=== PATIENT | female | born 1995 | race African-American/Black ===

== ENCOUNTER 2017-02-15 08:40 | Inpatient (IN) | payer MEDICAID ==
[2017-02-15] VITALS (12 sets, daily range): BP systolic 104–119; BP diastolic 64–79; PULSE 63–81; RESP 14–20; TEMP 97.5–98.6; O2SAT 100
[~2017-02-15 08:40] MED LIST: FERRTAB6 PO; PREN1CHW7 PO
[2017-02-15] MEDS ORDERED: LACTATED RINGER'S 1000 ML INJ 1,000 ML IV ONE (09:10)
[2017-02-15 09:20] LABS: AUTOMATED NEUTROPHIL # 5.1 TH/MM3 (1.8-7.7); BASOPHIL % 0.5 % (0.0-2.0); EOSINOPHIL # 0.1 TH/MM3 (0-0.4); EOSINOPHIL % 1.5 % (0.0-4.0); HEMATOCRIT 28.9 % (35.0-46.0); HEMO FLAGS DIFF FINAL; LYMPH % 20.6 % (9.0-44.0); LYMPHOCYTE # 1.6 TH/MM3 (1.0-4.8); MEAN CELL VOLUME 75.3 FL (80.0-100.0); MEAN CORPUSCULAR HEMOGLOBIN 24.3 PG (27.0-34.0); MEAN CORPUSCULAR HGB CONC 32.3 % (32.0-36.0); MONO % 9.5 % (0.0-8.0); NEUT % 67.9 % (16.0-70.0); PLATELET COUNT 244 TH/MM3 (150-450); RED BLOOD COUNT 3.84 MIL/MM3 (4.00-5.30); WHITE BLOOD COUNT 7.5 TH/MM3 (4.0-11.0)
[2017-02-15 09:26] LABS: BACTERIA, URINE RARE /hpf; BLOOD, URINE NEG (NEG); COMMENT (UR) CULT NOT INDICATED; CULTURE IF INDICATED CULT NOT INDICATED; GLUCOSE,URINE NEG (NEG); KETONE, URINE NEG (NEG); MUCUS URINE FEW /lpf (OCC); NITRITE,URINE NEG (NEG); PH, URINE 7.5 (5.0-8.5); SQUAMOUS EPITHELIAL CELL URINE 2 /hpf (0-5); URINE COLOR YELLOW (YELLW/STRAW)
[2017-02-15] MEDS ORDERED: OXYTOCIN 10 UNIT/ML AMP ONE (09:39)
[2017-02-15] MEDS ORDERED: LACTATED RINGER'S 1000 ML INJ 1,000 ML IV SCH ×2 (09:40→16:33)
--- NOTE | 2017-02-15 10:04 | HHI.HP ---
History & Physical H&P Patient Name: Sosa Alves Unit Number: [id number] Date of : 1995 Patient Status: Registered Clinic Attending Doctor: Bolivar Mahajan II, MD HPI HPI Chief Complaint Previous for repeat Date Seen: Feb 03, 2017 Travel History International Travel<30 Days: No Contact w/Intl Traveler<30Days: No Known Affected Area: No History of Present Illness HPI Patient is a 22-year-old black female at 39-1/2 weeks presents for C- section . She had a previous done in [place] for failure to progress , she's had no problems this began her care this approximately 20 weeks and has had ultrasound confirmation of gestational age with a due date of 02/20/17. She was placed problems heart rate tracing is reactive she's not isabel Para: 1 : 2 History (Limited) History Past Medical History Narrative Medical Anemia and is taking by mouth iron Obstetric History Obstetric History 1 for failure to progress and [place] Past Surgical History Narrative Surgical 1 Social History Alcohol Use: No Tobacco Use: No Substance Abuse: No Allergies-Medications Allergies-Medications (Allergen,Severity, Reaction): Coded Allergies: No Known Allergies (Unverified , 01/26/17) Home Meds No Active Prescriptions or Reported Meds ROS Review of Systems General / Constitutional: No: Fever, Weight Gain, Chills, Other Eyes: No: Diploplia, Blurred Vision, Visual changes, Pain, Photophobia HENT: No: Headaches, Vertigo, Lightheadedness Cardiovascular: No: Irregular Rhythm, Chest Pain or Discomfort, Palpitations, Tachycardia, Syncope, Varicosities, Edema, Cyanosis Respiratory: No: Cough, Short of Breath, Other Gastrointestinal: No: Nausea, Vomiting, Diarrhea Genitourinary: No: Decreased Urinary Output, Oliguria Musculoskeletal: No: Limited ROM, Weakness, Cramping, Edema, Pain Skin: No Rash, No Itching, No Dryness, No Lumps, No Change in Pigmentation, No Change in Nails, No Alopecia, No Lesions Neurologic: No: Weakness, Dizziness, Syncope, Focal Abnormalities, Coordination Problem, Headache, Slurred Speech, Seizures Psychiatric: No: Depression, Suicidal Ideations, Homicidal Ideation Endocrine: No: Heat Intolerance, Cold Intolerance, Polydipsia, Polyuria, Other Physical Exam Physical Exam Narrative GENERAL: Well-nourished, well-developed patient. SKIN: Warm and dry. HEAD: Normocephalic and atraumatic. EYES: No scleral icterus. No injection or drainage. ENT: No nasal drainage noted. Mucous membranes pink. Airway patent. NECK: Supple, trachea midline. No JVD. CARDIOVASCULAR: Regular rate and rhythm without murmurs, gallops, or rubs. RESPIRATORY: Breath sounds equal bilaterally. No accessory muscle use. BREASTS: Bilateral exam showed no masses , no retractions, no nipple discharge. ABDOMEN/GI: Abdomen soft, non-tender, bowel sounds present, no rebound, no guarding Gravid to [38-] weeks size Fundal Height: [-38] GENITOURINARY: External Genitalia: intact and normal in appearance BUS glands: [-] Cervix: [-0] Dilatation: [0-] Effacement: [Thick-] Station: [-3] Presentation: [-vtx] Membranes: [intact ] Uterine Contractions: [0-] FHT's: Category: [1-] Baseline: [133-] Reactive: [yes-] Variability: [mod-] Decels: [0-] EXTREMITIES: No cyanosis or edema. BACK: Nontender without obvious deformity. No CVA tenderness. NEUROLOGICAL: Awake and alert. Motor and sensory grossly within normal limits. Five out of 5 muscle strength in all muscle groups. Normal speech. Data Data [facility] Interpretation(s) This patient is a 22-year-old black female at 37 weeks' now presented for . She's previous done in [place] for failure to progress. She has no complaints or problems at this time baby is reactive and no contractions. [facility] Plan Plan to schedule section repeat on 02/15/17 at 10:30 AM Diagnosis: previous at term Disposition: ADMIT Condition: Stable Scripts No Active Prescriptions or Reported Meds Bolivar Mahajan II, MD Feb 03, 2017 15:03 Bolivar Mahajan II, MD Feb 15, 2017 10:04
[2017-02-15] MEDS ORDERED: ceFAZolin 2 GM PREMIX 50 ML IV SCH (10:15)
[2017-02-15] MEDS ORDERED: CITRIC ACID-SODIUM CITRATE LIQ 30 ML UDC PO SCH (10:45)
[2017-02-15] MEDS ORDERED: MORPHINE SULFATE PF 5 MG/10 ML VIAL ONE (11:36)
[2017-02-15] MEDS ORDERED: SODIUM CHLORIDE 0.9% FLUSH 10 ML FLUSH IV FLUSH PRN (11:45)
[2017-02-15] MEDS ORDERED: KETOROLAC TROMETHAMINE 60 MG/2 ML (IM) VIAL IM PRN (11:45)
[2017-02-15] MEDS ORDERED: OXYTOCIN 30 UNITS-500ML PREMIX 500 ML IV ONE (11:45)
[2017-02-15] MEDS ORDERED: oxyCODONE/ACETAMINOPHEN 5 MG/325 MG TAB PO PRN (11:45)
[2017-02-15] MEDS ORDERED: ACETAMINOPHEN 325 MG TAB PO PRN (11:45)
[2017-02-15] MEDS ORDERED: OXYTOCIN 30 UNITS-500ML PREMIX 500 ML ONE (12:07)
[2017-02-15] MEDS ORDERED: KETOROLAC TROMETHAMINE 60 MG/2 ML (IM) VIAL IM ONE (12:13)
[2017-02-15] MEDS ORDERED: ACETAMINOPHEN 1000 MG/100 ML VIAL IV ONE (12:13)
[2017-02-15] MEDS ORDERED: ONDANSETRON HCL 4 MG/2 ML VIAL IV PUSH PRN (12:15)
[2017-02-15] MEDS: IBUPROFEN 600 MG TAB PO PRN (18:27)
[2017-02-15] MEDS: oxyCODONE/ACETAMINOPHEN 5 MG/325 MG TAB PO PRN (20:32)
[2017-02-15] MEDS ORDERED: ZOLPIDEM TARTRATE 5 MG TAB PO PRN (21:00)
[2017-02-15] MEDS ORDERED: SODIUM CHLORIDE 0.9% FLUSH 10 ML FLUSH IV FLUSH SCH (21:00)
[2017-02-15] MEDS ORDERED: OXYTOCIN 30 UNITS-500ML PREMIX 500 ML IV PRN (21:45)
--- NOTE | 2017-02-15 22:44 | MP ---
cc: CORY MAHAJAN MD DATE OF SURGERY 02/15/17 PREOPERATIVE DIAGNOSIS Previous caesarean section at term for repeat caesarean section POSTOPERATIVE DIAGNOSIS Previous caesarean section at term for repeat caesarean section OPERATION: Repeat low transverse caesarean section SURGEON Rosario Mahajan MD PV INSTALLER TECH Dr. Hooker ANESTHESIA Spinal PROCEDURE IN DETAIL The patient is a 22 year old black female at 39+ weeks. She had a previous caesarean section and requests repeat caesarean section for delivery. She is 39 weeks gestation. The patient was taken to the operating room and placed in supine position on the operating table. After adequate spinal anesthesia was administered, she was prepped and draped for abdominal surgery. A previous Pfannenstiel incision was excised out and cast away. The incision carried to the fascia, fascia taken laterally off the rectus muscle and the peritoneal cavity entered in the midline. The incision was extended superiorly and inferiorly. The bladder blade placed in lower edge of incision. The distal peritoneum reflected off the lower uterine segment and placed on the bladder blade. A transverse hysterotomy was made and extended bluntly bilaterally and clear fluid noted. A male infant, weight 3690 grams, 8/9, was delivered at 10:49 a.m. without complication. Cord blood obtained. The placenta manually extracted. Uterus exteriorized. All remnants of membrane cleaned from the uterus. Cervix dilated. The hysterotomy closed with running layer of 0 Chromic followed by imbricating suture of same. Hemostasis was achieved with a stick tie. The bladder reapproximated with running layer of 2-0 Vicryl. The uterus elevated and blood suctioned from cul-de-sac and gutter. The uterus replaced in peritoneal cavity. The parietal peritoneum closed in running layer of 2-0 Vicryl. Rectus muscle reapproximated with stick ties and Chromic. The fascia closed in running layer of 0 Vicryl. Subcutaneous tissue reapproximated with 3-0 plain running suture. Skin closed with 3-0 Monocryl subcuticular stitch. Pressure dressing applied. Estimated blood loss 500 cc. No complications. Sponge and needle correct times two. The patient sent to recovery in stable condition. Baby well to baby nursery. MD LORAINE Okeefe/ /11:47 AM /10:34 PM
[2017-02-16 00:15] VITALS: BP 99/60; PULSE 71; RESP 14; TEMP 98.7
[2017-02-16 04:15] VITALS: BP 104/68; PULSE 77; RESP 16; TEMP 98.7
[2017-02-16 05:57] LABS: AUTOMATED NEUTROPHIL # 7.6 TH/MM3 (1.8-7.7); BASOPHIL % 0.2 % (0.0-2.0); EOSINOPHIL # 0.2 TH/MM3 (0-0.4); HEMATOCRIT 25.5 % (35.0-46.0); HEMO FLAGS DIFF FINAL; LYMPH % 11.4 % (9.0-44.0); LYMPHOCYTE # 1.1 TH/MM3 (1.0-4.8); MEAN CELL VOLUME 75.1 FL (80.0-100.0); MEAN CORPUSCULAR HEMOGLOBIN 24.6 PG (27.0-34.0); MEAN CORPUSCULAR HGB CONC 32.8 % (32.0-36.0); MONO % 10.8 % (0.0-8.0); NEUT % 75.6 % (16.0-70.0); PLATELET COUNT 187 TH/MM3 (150-450); RED BLOOD COUNT 3.39 MIL/MM3 (4.00-5.30); RED CELL DISTRIBUTION WIDTH 16.2 % (11.6-17.2); WHITE BLOOD COUNT 10.1 TH/MM3 (4.0-11.0)
[2017-02-16] MEDS ORDERED: medroxyPROGESTERone ACETATE SUSP 150 MG/ML SYRINGE IM ONE (08:30)
--- NOTE | 2017-02-16 08:42 | HHI.OB ---
Subjective Post Operative Day: 1 Remarks 22 YO female delivered via C/S at 39/2 weeks and is POD1. Pt meeting most post-op goals and AFVSS. She is eating, drinking, urinating and ambulating appropriately, but has not yet had flatus or stool production. Denies CP, SOB, dizziness, or N/V. Objective Vitals/I&O Vital Signs Date Time Temp Pulse Resp B/P Pulse Ox O2 Delivery O2 Flow Rate FiO2 02/16/17 04:15 98.7 77 16 104/68 02/16/17 00:15 98.7 71 14 99/60 02/15/17 20:15 98.4 80 18 104/71 02/15/17 13:00 97.5 63 16 111/73 02/15/17 12:34 67 16 119/79 100 02/15/17 12:28 97.5 02/15/17 12:25 66 18 115/76 100 02/15/17 12:08 73 18 111/75 100 02/15/17 11:55 73 20 105/64 100 02/15/17 11:40 97.6 80 14 02/15/17 11:40 109/68 02/15/17 09:30 98.6 18 02/15/17 09:25 80 02/15/17 09:20 81 02/15/17 09:15 80 108/74 Result Diagram: 02/16/17 0530 Objective Remarks GENERAL: WDWN pleasant Af-Am female lying in bed with her baby in NAD.. CARDIOVASCULAR: RRR without murmurs, gallops, or rubs. RESPIRATORY: Breath sounds equal bilaterally w/no increased WOB. No accessory muscle use. ABDOMEN/GI: Abdomen soft, tender, w/o guarding or rebound. Incision: Dressing clean, dry and intact. Fundus: Firm, non-tender at umbilicus. GENITOURINARY: Light to moderate bleeding. EXTREMITIES: No cyanosis or edema, non-tender, without signs of DVT. Medications and IVs Current Medications Medications (Trade) Dose Ordered Sig/Cathy Route Start Time Stop Time Status Last Admin Lactated Ringer's 1,000 ml @ 150 mls/hr Q6H40M IV 02/15/17 09:40 (Lr 1000 ml Inj) 1,000 ml @ 100 mls/hr Q10H IV 02/15/17 16:33 02/16/17 12:32 (NS Flush) 2 ml BID IV FLUSH 02/15/17 21:00 (NS Flush) 2 ml UNSCH PRN IV FLUSH 02/15/17 11:45 (Tylenol) 650 mg Q6H PRN PO 02/15/17 11:45 (Motrin) 600 mg Q6H PRN PO 02/15/17 11:45 02/15/17 18:27 (Toradol Inj) 30 mg Q6H PRN IM 02/15/17 11:45 02/16/17 11:44 (Percocet 5-325 Mg) 1 tab Q4H PRN PO 02/15/17 11:45 02/15/17 20:32 (Percocet 5-325 Mg) 2 tab Q4H PRN PO 02/15/17 11:45 (Ambien) 5 mg HS PRN PO 02/15/17 21:00 (M-M-R Ii Inj) 0.5 ml ONCE ONCE SQ 02/16/17 16:00 02/16/17 16:01 (Boostrix Inj) 0.5 ml ONCE ONCE IM 02/16/17 16:00 02/16/17 16:01 (Zofran Inj) 4 mg Q6H PRN IV PUSH 02/15/17 12:15 (Depo-Provera Inj) 150 mg ONCE ONCE IM 02/16/17 08:30 02/16/17 08:31 UNV Assessment/Plan Assessment and Plan 22 YO delivered via C/S at 39/2 weeks and is recovering appropriately and meeting post-op goals on POD1. - Routine post-op care - Motrin and Percocet PRN for pain control - OOB, regular diet - Senna for bowel wake-up - Depo for requested contraception - Dispo home on 02/17 or 02/18 Discharge Planning home Too Worley MD R1 Feb 16, 2017 08:42
[2017-02-16 09:00] VITALS: BP 99/69; PULSE 78; RESP 16; TEMP 97.9
[2017-02-16] MEDS: IBUPROFEN 600 MG TAB PO PRN ×3 (09:01→21:16)
[2017-02-16 11:00] VITALS: BP 109/63
[2017-02-16] MEDS: oxyCODONE/ACETAMINOPHEN 5 MG/325 MG TAB PO PRN ×2 (15:09→21:16)
[2017-02-16] MEDS ORDERED: MEASLES, MUMPS, RUBELLA VACCINE 0.5 ML VIAL SQ ONE (16:00)
[2017-02-16] MEDS ORDERED: DIPHTH/TETANUS/ACEL PERTUSSIS (BOOSTER) 0.5 ML VIAL/PFS IM ONE (16:00)
[2017-02-16 20:10] VITALS: BP 106/67; PULSE 86; RESP 18; TEMP 97.9
[2017-02-17] MEDS: oxyCODONE/ACETAMINOPHEN 5 MG/325 MG TAB PO PRN ×4 (01:20→22:06)
[2017-02-17 08:20] VITALS: BP 112/80; PULSE 80; RESP 16; TEMP 99
--- NOTE | 2017-02-17 08:22 | HHI.OB ---
Subjective Post Operative Day: 2 Remarks Pt is meeting all post-op goals appropriately (urinating, passing flatus, pain controlled, PO and OOB). Pt admits to cramping when she breastfeeds and was counseled that is a normal hormonal reaction until the uterus returns to normal size. Pt desires to stay 1 more day. Denies CP, SOB, N/V/D, and DVT. (Too Worley MD R1) Objective Vitals/I&O Vital Signs Date Time Temp Pulse Resp B/P Pulse Ox O2 Delivery O2 Flow Rate FiO2 02/16/17 20:10 106/67 02/16/17 20:10 97.9 86 18 02/16/17 11:00 109/63 02/16/17 09:00 97.9 02/16/17 09:00 78 16 99/69 (Too Worley MD R1) Result Diagram: 02/16/17 0530 Objective Remarks GENERAL: WDWN pleasant Af-Am female lying in bed with her baby in NAD.. CARDIOVASCULAR: RRR without murmurs, gallops, or rubs. RESPIRATORY: Breath sounds equal bilaterally w/no increased WOB. No accessory muscle use. ABDOMEN/GI: Abdomen soft, tender to palpation, w/o guarding or rebound. Incision: wound clean, dry and intact with no evidence of leakage or discharge. Fundus: Firm, non-tender below umbilicus. GENITOURINARY: Light bleeding. EXTREMITIES: No cyanosis or edema, non-tender, without signs of DVT. Medications and IVs Current Medications Medications (Trade) Dose Ordered Sig/Cathy Route Start Time Stop Time Status Last Admin (Lr 1000 ml Inj) 1,000 ml @ 150 mls/hr Q6H40M IV 02/15/17 09:40 (NS Flush) 2 ml BID IV FLUSH 02/15/17 21:00 (NS Flush) 2 ml UNSCH PRN IV FLUSH 02/15/17 11:45 (Tylenol) 650 mg Q6H PRN PO 02/15/17 11:45 (Motrin) 600 mg Q6H PRN PO 02/15/17 11:45 02/16/17 21:16 (Percocet 5-325 Mg) 1 tab Q4H PRN PO 02/15/17 11:45 02/17/17 01:20 (Percocet 5-325 Mg) 2 tab Q4H PRN PO 02/15/17 11:45 02/16/17 09:01 (Ambien) 5 mg HS PRN PO 02/15/17 21:00 (Zofran Inj) 4 mg Q6H PRN IV PUSH 02/15/17 12:15 (Too Worley MD R1) Assessment/Plan Assessment and Plan 22 YO delivered via C/S at 39/2 weeks and is recovering appropriately and meeting post-op goals on POD2. - Routine post-op care - Motrin and Percocet PRN for pain control - OOB, regular diet - Senna for bowel wake-up - Depo fgiven 02/16 - Dispo home on 02/18 Discharge Planning home (Too Worley MD R1) Attending Attestation The exam, history, and the medical decision-making described in the above note were completed with the assistance of the resident provider. I reviewed and agree with the findings presented. I attest that I had a [id number] encounter with the patient on the same day, and personally performed and documented my assessment and findings in the medical record. (Desi Contreras MD) Too Worley MD R1 Feb 17, 2017 08:22 Desi Contreras MD Feb 17, 2017 09:24
[2017-02-17] MEDS: IBUPROFEN 600 MG TAB PO PRN ×3 (08:51→22:06)
[2017-02-17 20:10] VITALS: BP 108/67; PULSE 77; RESP 18; TEMP 98.7
[2017-02-18] MEDS: IBUPROFEN 600 MG TAB PO PRN ×2 (05:06→12:19)
[2017-02-18] MEDS: oxyCODONE/ACETAMINOPHEN 5 MG/325 MG TAB PO PRN ×2 (05:06→12:19)
[2017-02-18] MEDS ORDERED: IBUP-232 PO (06:46)
--- NOTE | 2017-02-18 06:47 | HHI.DCPOC ---
Discharge Care Plan Diagnosis: (1) delivery, delivered, current hospitalization Report Symptoms to Your Doctor -Temperature above 100.5 degrees -Redness, of incision or excessive or foul smelling drainage -Unusual pain or calf pain -Increased vaginal bleeding -Painful or difficulty urinating -Feelings of extreme sadness or anxiety after 2 weeks Goals to Promote Your Health * To prevent worsening of your condition and complications * To maintain your health at the optimal level Directions to Meet Your Goals Take your medications as prescribed Follow your dietary instruction Follow activity as directed Ensure plenty of rest for recovery Drink fluids for hydration Keep your appointments as scheduled Take your immunizations and boosters as scheduled If your symptoms worsen call your PCP, if no PCP go to Urgent Care Center or Emergency Room Smoking is Dangerous to Your Health. Avoid second hand smoke Call the 24-hour crisis hotline for domestic abuse at Perry Jesus MD R1 Feb 18, 2017 06:47
[2017-02-18] MEDS ORDERED: OXYC1TAB63 PO (08:23)
--- NOTE | 2017-02-18 08:34 | HHI.OB ---
Subjective Post Operative Day: 3 Remarks 22 YO delivered by C/S at 39/2 weeks and is progressing well on POD3. Meeting all post-op goals wrt PO, OOB, voiding, pain control and passing flatus w/o BM yet. No bleeding reported and uterus is less tender. No CP, SOB, N/V/D or DVT pain. Objective Vitals/I&O Vital Signs Date Time Temp Pulse Resp B/P Pulse Ox O2 Delivery O2 Flow Rate FiO2 02/17/17 20:10 98.7 77 18 108/67 Result Diagram: 02/16/17 0530 Objective Remarks GENERAL: WDWN pleasant Af-Am female lying in bed with her baby in NAD. CARDIOVASCULAR: RRR without murmurs, gallops, or rubs. RESPIRATORY: Breath sounds equal bilaterally w/no increased WOB. No accessory muscle use. ABDOMEN/GI: Abdomen soft, tender to palpation, w/o guarding or rebound. Incision: wound clean, dry and intact with no evidence of leakage or discharge. Fundus: Firm, non-tender below umbilicus. GENITOURINARY: No bleeding. EXTREMITIES: No cyanosis or edema, non-tender, without signs of DVT. Medications and IVs Current Medications Medications (Trade) Dose Ordered Sig/Cathy Route Start Time Stop Time Status Last Admin (Lr 1000 ml Inj) 1,000 ml @ 150 mls/hr Q6H40M IV 02/15/17 09:40 (NS Flush) 2 ml BID IV FLUSH 02/15/17 21:00 (NS Flush) 2 ml UNSCH PRN IV FLUSH 02/15/17 11:45 (Tylenol) 650 mg Q6H PRN PO 02/15/17 11:45 (Motrin) 600 mg Q6H PRN PO 02/15/17 11:45 02/18/17 05:06 (Percocet 5-325 Mg) 1 tab Q4H PRN PO 02/15/17 11:45 02/18/17 05:06 (Percocet 5-325 Mg) 2 tab Q4H PRN PO 02/15/17 11:45 02/16/17 09:01 (Ambien) 5 mg HS PRN PO 02/15/17 21:00 (Zofran Inj) 4 mg Q6H PRN IV PUSH 02/15/17 12:15 Assessment/Plan Assessment and Plan 22 YO delivered via C/S at 39/2 weeks and is recovering appropriately and meeting post-op goals on POD3. - Routine post-op care - Motrin and Percocet PRN for pain control - OOB, regular diet - Senna for bowel wake-up - Depo given 02/16 - Pelvic rest x6 weeks - Dispo home on 02/18 dw Anuel Mahajan and Ann Marie Discharge Planning home Too Worley MD R1 Feb 18, 2017 08:34
[2017-02-18 09:00] VITALS: BP 110/67; PULSE 86; RESP 16; TEMP 98.1
== END 2017-02-18 14:51 | disposition home or self-care (01) | DRG 766 ==
LOC: H2EB 08:40 → H1EA 13:00
PROVIDERS: ADMIT Obstetrics & Gynecology Maternal & Fetal Medicine; ATTEND Obstetrics & Gynecology Maternal & Fetal Medicine
PROC: 10D00Z1 Extraction of Products of Conception, Low, Open Approach (ICD-10-PCS; principal; 2017-02-15)
DX: O34.211 Maternal care for low transverse scar from previous cesarean delivery (principal); O99.02 Anemia complicating childbirth; D64.9 Anemia, unspecified; Z37.0 Single live birth; Z3A.39 39 weeks gestation of pregnancy
CPT/HCPCS: 59025; 81001; 85025; 86077; 86850; 86870; 86900; 86901; 86902; 86920; 86922; 90715; J0131; J0690; J1050; J1885; J2274; J2590; J3010; J7120

== ENCOUNTER 2017-03-02 19:29 | Emergency (ER) | payer MEDICAID ==
[~2017-03-02 19:29] MED LIST changes: +IBUP-232 PO; +OXYC1TAB63 PO
[2017-03-02 19:33] VITALS: BP 131/74; PULSE 111; RESP 16; TEMP 99.4; O2SAT 98
--- NOTE | 2017-03-02 21:59 | PD ---
HPI Chief Complaint: Fever Time Seen by Provider: 21:59 Travel History International Travel<30 days: No Contact w/Intl Traveler<30days: No Traveled to known affect area: No History of Present Illness HPI 22 YO , 2 week F presents to the ED for evaluation of two day history of right breast pain and one day history of fever. She states that she is attempting to stop nursing her since yesterday. She has been pumping to alleviate breast pain. She denies N/V, pain of the wound, dysuria , back pain. C section was performed by Dr. Mahajan. She has not yet followed up. [facility] Social History Alcohol Use: No Tobacco Use: No Allergies-Medications (Allergen,Severity, Reaction): Coded Allergies: No Known Allergies (Unverified , 02/04/17) Reported Meds & Prescriptions Reported Meds & Active Scripts Active Ibuprofen 600 Mg Tab 600 Mg PO Q8H PRN Keflex (Cephalexin) 500 Mg Cap 500 Mg PO Q6H 10 Days Oxycodone-Acetaminophen 5-325 mg Tab 1-2 Tab PO Q4H PRN Ibuprofen 600 Mg Tab 600 Mg PO Q6H PRN Ferrocite Plus 106-1 mg (Ferrous Iowcuqfz-VF-T Complex-) 1 Tab Tab 106 Tab PO DAILY Vitafol Gummies 3.33-0.333-34.8 mg ( Vit W/ Ferric Phospha) 1 Chw Chw 3.33 Chew PO DAILY Review of Systems Except as stated in HPI: all other systems reviewed are Neg Physical Exam Narrative GENERAL: Well-nourished, well-developed patient. SKIN: Focused skin assessment warm/dry. Pfannenstiel scar is well healing without signs of infection. Steri-Strips in place. Right breast is warm, mildly erythematous. Ropy induration in the upper inner quadrant,consistent with mastitis. HEAD: Normocephalic. EYES: No scleral icterus. No injection or drainage. NECK: Supple, trachea midline. No JVD or lymphadenopathy. CARDIOVASCULAR: Regular rate and rhythm without murmurs, gallops, or rubs. RESPIRATORY: Breath sounds equal bilaterally. No accessory muscle use. GASTROINTESTINAL: Abdomen soft, non-tender, nondistended. No suprapubic tenderness. MUSCULOSKELETAL: No cyanosis, or edema. BACK: Nontender without obvious deformity. No CVA tenderness. Data Data Last Documented VS Vital Signs Date Time Temp Pulse Resp B/P Pulse Ox O2 Delivery O2 Flow Rate FiO2 03/02/17 19:33 99.4 111 16 131/74 98 Room Air Orders Ibuprofen (Motrin) (03/02/17 22:15) Cephalexin (Keflex) (03/02/17 22:15) MDM Medical Decision Making Medical Screen Exam Complete: Yes Emergency Medical Condition: Yes Differential Diagnosis mastitis versus wound infection versus UTI versus other Narrative Course 22 YO , 2 week F presents to the ED for evaluation of two day history of right breast pain and one day history of fever. She states that she is attempting to stop nursing her since yesterday. She has been pumping to alleviate breast pain. She denies N/V, pain of the wound, dysuria , back pain. C section was performed by Dr. Mahajan. She has not yet followed up. Vitals reviewed. Exam safety assistant with mastitis. Patient was prescribed 600 mg ibuprofen, 500 mg Keflex first dose is administered in the ED. She is instructed to continue nursing on the affected side, use warm compresses to alleviate pain, massage the breast to ensure good drainage, take antibiotics as prescribed, follow up with Dr. Mahajan. She indicated understanding of instructions and is agreeable to the care plan. She is stable and discharged home. Diagnosis Primary Impression: Acute mastitis of right breast Referrals: Resaw Operator Patient Instructions: General Instructions, Mastitis (ED) Additional Instructions: Hydrate. Nurse regularly on the affected side. Warm compresses 15-20 min a few times per day to reduce pain. Gentle massage of the breast to encourage flow from the infected duct. Take all antibiotic as prescribed, even if your symptoms resolve. 600 mg ibuprofen every 6 hours as needed for continued fever. Follow up with your program director/traffic director. Return to the ED for any urgent or emergent medical condition. Med/Other Pt SpecificInfo: Prescription(s) given Scripts Ibuprofen 600 Mg Qdr653 Mg PO Q8H PRN (FEVER) #10 TAB Ref 0 Prov:Rei Bernal MD 03/02/17 Cephalexin (Keflex)500 Mg Etb663 Mg PO Q6H 10 Days Ref 0 Prov:Rei Bernal MD 03/02/17 Disposition: 01 DISCHARGE HOME Condition: Stable Lesia Bradford Mar 02, 2017 21:59
[2017-03-02] MEDS ORDERED: IBUP-232 PO (22:11)
[2017-03-02] MEDS ORDERED: CEPH-460 PO (22:11)
[2017-03-02] MEDS ORDERED: CEPHALEXIN MONOHYDRATE 500 MG CAP PO ONE (22:15)
[2017-03-02] MEDS ORDERED: IBUPROFEN 600 MG TAB PO ONE (22:15)
== END 2017-03-02 23:06 | disposition home or self-care (01) ==
LOC: NEPE 19:29
DX: N61.0 Mastitis without abscess (principal); N64.4 Mastodynia; Z79.899 Other long term (current) drug therapy
CPT/HCPCS: 99283